=== PATIENT | female | born 1950 | race Caucasian/White ===

== ENCOUNTER 2017-07-14 00:33 | Inpatient (IN) | payer OTHER ==
[~2017-07-14] VITALS: Ht 152.4 cm; Wt 55.3 kg
[2017-07-14] MEDS ORDERED: MORPHINE SULFATE 4 MG/ML SYR IM/IVP PRN (07:25)
[2017-07-14] MEDS ORDERED: ACETAMINOPHEN/CODEINE 300/30MG 1 TAB PO PRN (07:25)
[2017-07-14] MEDS ORDERED: SEVOFLURANE 250 ML BTL INH ONE (07:25)
[2017-07-14] MEDS ORDERED: ONDANSETRON 4 MG/2 ML VIAL ONE (07:25)
[2017-07-14] MEDS ORDERED: IBUPROFEN 800 MG TAB PO PRN (07:25)
[2017-07-14] MEDS ORDERED: PROPOFOL 200 MG/20 ML VIAL IV ONE (07:25)
[2017-07-14] MEDS ORDERED: DEXAMETHASONE 4 MG/ML VIAL ONE (07:25)
[2017-07-14] MEDS ORDERED: fentaNYL 0.05 MG/ML VIAL ONE (07:28)
[2017-07-14] MEDS ORDERED: MORPHINE SULFATE 4 MG/ML SYR ONE ×3 (07:28→09:01)
[2017-07-14] MEDS ORDERED: MIDAZOLAM 2 MG/2 ML VIAL ONE (07:28)
[2017-07-14] MEDS ORDERED: ATOR20TA40 PO (07:38)
[2017-07-14] MEDS ORDERED: PANT40EC28 PO (07:38)
[2017-07-14] MEDS ORDERED: AMLO10TA PO (07:38)
[2017-07-14] MEDS ORDERED: MORPHINE SULFATE 4 MG/ML SYR IVP PRN ×2 (08:25)
[2017-07-14] MEDS ORDERED: METOCLOPRAMIDE 10 MG/2 ML INJ VIAL IVP PRN (08:25)
[2017-07-14] MEDS ORDERED: MIDAZOLAM 2 MG/2 ML VIAL IV ONE (08:25)
[2017-07-14] MEDS: MORPHINE SULFATE 2 MG/ML SYR IVP PRN ×4 (08:35→09:05)
--- NOTE | 2017-07-14 09:07 | NUR ---
PATIENT HAS BEEN SCREENED AND CATEGORIZED LOW NUTRITION RISK. PATIENT WILL BE SEEN WITHIN 7 DAYS OF ADMISSION. 07/20/[address]
--- NOTE | 2017-07-14 09:30 | NUR ---
PATIENT BROUGHT TO UNIT VIA GURNEY FROM SAME DAY SURGERY. PATIENT IS AAOX4, NO SIGNS AND SYMPTOMS OF ACUTE DISTRESS NOTED AT THIS TIME. 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 HAS A SCANT AMOUNT OF BLEEDING FROM SITE NOTED ON PERIPAD. COMPLAINS OF PAIN, WAS GIVEN 8 MG OF MORPHINE IN PACU. BEDSIDE REPORT GIVEN FROM [facility]. BED IN LOWEST POSITION, SIDE RAILS UP X2, CALL LIGHT WITHIN REACH. WILL CONTINUE TO MONITOR. ON OBSERVATION FOR NOW.
[2017-07-14] MEDS ORDERED: ONDANSETRON 4 MG/2 ML VIAL IVP PRN (11:10)
--- NOTE | 2017-07-14 11:40 | NUR ---
PATIENT WANTED TO AMBULATE TO THE RESTROOM AND STAY SEATED ON THE TOILET FOR A WHILE. WILL CONTINUE TO MONITOR.
--- NOTE | 2017-07-14 13:30 | NUR ---
LAB CALLED ME TO INFORM ME THAT PATIENT DOESN'T QUALIFY FOR RHOGAM SHOT. IF I COULD HAVE THE ORDER CANCELLED.
--- NOTE | 2017-07-14 14:40 | NUR ---
PATIENT HAS NO SIGNS AND SYMPTOMS OF ACUTE DISTRESS NOTED. ORDER FOR DISCHARGE IF PATIENT IS STABLE. HAS BEEN URINATING. INFORMED HER ABOUT THE ORDER. SON IS HERE.
[2017-07-14 14:43] VITALS: BP 133/62
--- NOTE | 2017-07-14 15:10 | NUR ---
GAVE PATIENT INSTRUCTIONS TO FOLLOW UP WITH DR RAMÍREZ FOR POST OP. PATIENT SIGNED ALL PAPERWORK. GAVE PATIENT INSTRUCTIONS TO CALL DR RAMÍREZ OR GO TO ER IF HAVING A LOT OF BLEEDING OR UNABLE TO URINATE. PATIENT VERBALIZED UNDERSTANDING. REMOVED IV FROM SITE. WILL WHEEL PATIENT OUT.
== END 2017-07-14 15:10 | disposition home or self-care (01) | DRG 748 ==
LOC: MMU 06:17 → EDSTATUS 09:00
PROVIDERS: ADMIT Obstetrics & Gynecology; ATTEND Obstetrics & Gynecology
PROC: 0JQC0ZZ Repair Pelvic Region Subcutaneous Tissue and Fascia, Open Approach (ICD-10-PCS; 2017-07-14)
PROC: 0JQC0ZZ Repair Pelvic Region Subcutaneous Tissue and Fascia, Open Approach (ICD-10-PCS; principal; 2017-07-14 07:30)
DX: N81.10 Cystocele, unspecified (principal); E78.5 Hyperlipidemia, unspecified; N81.6 Rectocele; N39.3 Stress incontinence (female) (male); I10 Essential (primary) hypertension; K21.9 Gastro-esophageal reflux disease without esophagitis; M19.90 Unspecified osteoarthritis, unspecified site
CPT/HCPCS: 36415; 71045; 86886; 86900; 86901; 87081; 93005; J0690; J1100; J2250; J2270; J2405; J2704; J3010; J7030; J7060; J7120; Q0092

== ENCOUNTER 2017-08-15 12:02 | Emergency (ER) | payer OTHER ==
[~2017-08-15] VITALS: Ht 152.4 cm; Wt 55.8 kg
[~2017-08-15 12:02] MED LIST: AMLO10TA PO; ATOR20TA40 PO; PANT40EC28 PO
[2017-08-15 12:07] VITALS: BP 137/74
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
[2017-08-15] MEDS ORDERED: IBUPROFEN 800 MG TAB PO ONE (13:55)
[2017-08-15 16:32] VITALS: BP 137/74
== END 2017-08-15 16:33 | disposition home or self-care (01) ==
LOC: MED 12:02
DX: S63.286A Dislocation of proximal interphalangeal joint of right little finger, initial encounter (principal); K21.9 Gastro-esophageal reflux disease without esophagitis; I10 Essential (primary) hypertension; W18.39XA Other fall on same level, initial encounter; Y93.89 Activity, other specified; Y99.8 Other external cause status; Y92.89 Other specified places as the place of occurrence of the external cause
CPT/HCPCS: 26770; 73130; 73140; 99284

== ENCOUNTER 2017-08-18 12:37 | Emergency (ER) | payer OTHER ==
[~2017-08-18] VITALS: Ht 152.4 cm; Wt 55.3 kg
[2017-08-18 12:42] VITALS: BP 136/77
--- NOTE | 2017-08-18 12:46 | NUR ---
PT AMBULATES TO BED 10
--- NOTE | 2017-08-18 12:51 | NUR ---
DR PEÑA IN ROOM FOR EXAM
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
--- NOTE | 2017-08-18 13:10 | NUR ---
Patient discharged with v/s stable. Written and verbal after care instructions given and explained. Patient verbalized understanding. Ambulatory with steady gait. All questions addressed prior to discharge. Advised to follow up with PMD.
== END 2017-08-18 13:10 | disposition home or self-care (01) ==
LOC: MED 12:37
DX: S63.25 Unspecified dislocation of other finger (principal); K21.9 Gastro-esophageal reflux disease without esophagitis; I10 Essential (primary) hypertension; Z88.8 Allergy status to other drugs, medicaments and biological substances; Z48.00 Encounter for change or removal of nonsurgical wound dressing; X58.XXXD Exposure to other specified factors, subsequent encounter
CPT/HCPCS: 99282